=== PATIENT | male | born 1965 | race African-American/Black ===

== ENCOUNTER 2017-01-28 18:49 | Emergency (ER) | payer MEDICAID ==
[~2017-01-28] VITALS: Ht 172.7 cm; Wt 72.6 kg
[2017-01-28] MEDS ORDERED: LIBRIUM25 MG ORAL (19:07)
[2017-01-28] MEDS ORDERED: KEPPRA1000 MG ORAL (19:07)
--- NOTE | 2017-01-28 19:08 | Emergency Room Report ---
History of Present Illness General Chief Complaint: Seizure Source: Patient, Family Member, EMS Present Illness HPI Is a 51-year-old male with a history of seizure, poorly controlled. Also has a history of alcoholism. Per his he get seizure practically every day. He is taking Keppra 500 mg 3 times a day. He presents with chief complaint of a seizure activity today. said it lasts about 10 minutes. No tongue laceration or incontinence of his bowel or urine. Does have post ictal period. Right now he is back to baseline. Denies any other complaint. Allergies: Coded Allergies: No Known Allergies (Unverified , 01/28/17) Patient History Past Medical History: see triage record, old chart reviewed, seizures Past Surgical History: other Pertinent Family History: none Social History: Reports: alcohol use, smoking Immunizations: other Reviewed Nursing Documentation: PMH: Agreed, PSxH: Agreed Nursing Documentation-PMH Past Medical History: No History, Except For Hx Hypertension: Yes Hx Seizures: Yes Review of Systems Eye: Denies: blurred vision, eye pain ENT: Denies: ear pain, nose congestion, throat swelling Respiratory: Denies: cough, shortness of breath Cardiovascular: Denies: chest pain, palpitations Gastrointestinal: Denies: abdominal pain, diarrhea, nausea, vomiting Musculoskeletal: Denies: back pain, joint pain Skin: Denies: rash Neurological: Denies: headache, numbness Endocrine: Denies: increased thirst, increased urine Hematologic/Lymphatic: Denies: easy bruising All Other Systems: negative except mentioned in HPI Physical Exam Vital Signs Date Time Temp Pulse Resp B/P Pulse Ox O2 Delivery O2 Flow Rate FiO2 01/28/17 18:46 110 18 142/95 99 Room Air vitals with tachycardia Sp02 EP Interpretation: reviewed, normal General Appearance: well appearing, no apparent distress, alert Head: normocephalic, atraumatic Eyes: bilateral eye EOMI, bilateral eye PERRL ENT: hearing grossly normal, normal pharynx Neck: full range of motion, supple, no meningismus Respiratory: chest non-tender, lungs clear, normal breath sounds Cardiovascular #1: regular rate, rhythm, no murmur Gastrointestinal: normal bowel sounds, non tender, no mass, no organomegaly, no bruit, non-distended Musculoskeletal: back normal, gait/station normal, normal range of motion Psychiatric: mood/affect normal Skin: warm/dry Medical Decision Making Diagnostic Impression: Primary Impression: Epileptic seizure, generalized Additional Impression: Alcoholism ER Course Patient with generalize seizure. Probably secondary to noncompliance and alcohol. Mode changed Keppra to 1000 mg twice a day. We'll also prescribe Librium for alcohol withdrawal. Last Vital Signs Date Time Temp Pulse Resp B/P Pulse Ox O2 Delivery O2 Flow Rate FiO2 01/28/17 18:46 110 18 142/95 99 Room Air Status: improved Disposition: HOME, SELF-CARE Condition: Stable Scripts Chlordiazepoxide (Chlordiazepoxide HCl) 25 Mg Capsule 25 MG ORAL THREE TIMES A DAY, #21 CAP 0 Refills Prov: LEAH MAI M.D. 01/28/17 Levetiracetam (KEPPRA) 1,000 Mg Tablet 1000 MG ORAL BID, #60 TAB 0 Refills Prov: LEAH MAI M.D. 01/28/17 Patient Instructions: Seizure, Adult Additional Instructions: Abstain from alcohol. Followup with your DrMarcela in 7 days. Return if symptom worsen. LEAH MAI M.D. Jan 28, 2017 19:08
[2017-01-28] MEDS ORDERED: levETIRAcetam 1,000mg/NS100ml 100 ML IVPB ONE (19:15)
[2017-01-28] MEDS ORDERED: chlordiazePOXIDE 25mg Cap ORAL ONE (19:15)
[2017-01-28 19:29] VITALS: BP 143/95
[2017-01-28 19:43] VITALS: BP 127/84
== END 2017-01-28 19:43 | disposition home or self-care (01) ==
LOC: EDBD 18:49 → EMR 19:20
DX: G40.409 Other generalized epilepsy and epileptic syndromes, not intractable, without status epilepticus (principal); F10.20 Alcohol dependence, uncomplicated; I10 Essential (primary) hypertension
CPT/HCPCS: 82962; 96374; 99284; J1953